=== PATIENT | female | born 2005 | race Caucasian/White ===

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

== ENCOUNTER → 2024-02-28 12:59 | Outpatient (CLI) | payer OTHER, MEDICAID, SELFPAY ==
[2024-02-28 20:26] LABS: Add Manual Diff / Slide Review NO; Basophils Absolute Auto 0 /uL (0-100); Basophils Percent Auto 1.1 % (0-2); Eosinophils Absolute Auto 100 /uL (0-450); Eosinophils Percent Auto 2.7 % (2-4); Hematocrit 33.5 % (36-46); Hemoglobin 11.7 g/dL (12.0-16.0); Lymphocytes Absolute Auto 1400 /uL (1100-4500); Mean Corpuscular HGB Conc 34.9 % (30-36); Mean Corpuscular Hemoglobin 33.7 PG (26-34); Mean Corpuscular Volume 96.7 fL (80-100); Monocytes Absolute Auto 100 /uL (0-900); Monocytes Percent Auto 6.4 % (3-14); Neutrophils Absolute Auto 600 /uL (1500-7000); Neutrophils Percent Auto 26.8 % (50-75); Platelet Count 250 X10^3/uL (150-400); Red Blood Cell Count 3.47 X10^6/uL (4.0-5.2); Red Cell Distribution Width 13.2 % (11.6-14.8); White Blood Cell Count 2.2 X10^3/uL (4.5-11.0)
[2024-02-28 20:49] LABS: Vitamin D 25 Hydroxy (D3) 38.6 ng/mL (30.0-100.0)
[2024-02-28 20:55] LABS: HEMOLYSIS < 15 (0-50); Iron 88 ug/dL (37-170)
[2024-02-28 20:57] LABS: Alanine Aminotransferase 24 IU/L (<35); Albumin Globulin Ratio 1.7 (1.0-2.8); Alkaline Phosphatase 50 U/L (38-126); Aspartate Aminotransferase 22 IU/L (14-36); BUN Creatinine Ratio 6.5 (6-22); Bilirubin Total 0.3 mg/dL (0.2-1.3); Blood Urea Nitrogen 5 mg/dL (7-17); Calcium 10.1 mg/dL (8.4-10.2); Carbon Dioxide 29 mmol/L (22-32); Chloride 101 mmol/L (98-107); Cholesterol 195 mg/dL (140-199); Estimated Glomerular Filt Rate > 60 mL/min (>60); Globulin 2.9 g/dL (1.7-4.1); Glucose 117 mg/dL (70-100); HEMOLYSIS < 15 (0-50); Phosphorous 4.4 mg/dL (4.5-5.5); Potassium 4.2 mmol/L (3.4-5.1); Sodium 140 mmol/L (137-145); Total Protein 7.9 g/dL (6.3-8.2)
[2024-02-28 21:08] LABS: Percent Iron Saturation 29 % (15-50); Total Iron Binding Capacity 307 ug/dL (265-497); Transferrin 231 mg/dL (206-381)
[2024-02-28 21:09] LABS: Prealbumin 28.5 mg/dL (17.6-36.0)
[2024-02-28 21:29] LABS: TSH w/ Reflex to FT4 1.13 uIU/mL (0.47-4.68)
[2024-02-28 21:33] LABS: Ferritin 36 ng/mL (6-137)
[2024-03-01 01:08] LABS: Homocysteine 10.8 umol/L (0.0-14.5)
[2024-03-04 18:39] LABS: Methylmalonic Acid,Serum 141 nmol/L (0-378)
== END ==
PROVIDERS: Nurse Practitioner; PCP Family Medicine; Visit Provider Family Medicine
DX: R62.7 Adult failure to thrive (principal); E46 Unspecified protein-calorie malnutrition; R63.4 Abnormal weight loss; R41.9 Unspecified symptoms and signs involving cognitive functions and awareness; D61.818 Other pancytopenia; F50.00 Anorexia nervosa, unspecified
CPT/HCPCS: 80053; 80069; 82306; 82465; 82728; 83090; 83540; 83550; 83921; 84134; 84443; 85025

== ENCOUNTER → 2024-03-14 11:00 | Outpatient (CLI) | payer OTHER, MEDICAID, SELFPAY ==
[2024-03-14 18:54] LABS: Albumin 4.2 g/dL (3.5-5.0); BUN Creatinine Ratio 12.5 (6-22); Blood Urea Nitrogen 8 mg/dL (7-17); Calcium 9.3 mg/dL (8.4-10.2); Carbon Dioxide 30 mmol/L (22-32); Chloride 103 mmol/L (98-107); Estimated Glomerular Filt Rate > 60 mL/min (>60); Glucose 57 mg/dL (70-100); HEMOLYSIS < 15 (0-50); Phosphorous 3.4 mg/dL (4.5-5.5); Sodium 139 mmol/L (137-145)
== END ==
PROVIDERS: PCP Family Medicine; Visit Provider Family Medicine
DX: R63.4 Abnormal weight loss (principal); R76.8 Other specified abnormal immunological findings in serum; R94.6 Abnormal results of thyroid function studies; E83.39 Other disorders of phosphorus metabolism; M25.50 Pain in unspecified joint; R62.7 Adult failure to thrive
CPT/HCPCS: 80069; 86038; 86225

== ENCOUNTER → 2024-03-28 11:02 | Outpatient (CLI) | payer OTHER, MEDICAID, SELFPAY ==
[2024-03-28 20:11] LABS: Add Manual Diff / Slide Review NO; Basophils Absolute Auto 0 /uL (0-100); Basophils Percent Auto 0.4 % (0-2); Eosinophils Absolute Auto 100 /uL (0-450); Eosinophils Percent Auto 3.3 % (2-4); Hematocrit 32.5 % (36-46); Hemoglobin 11.1 g/dL (12.0-16.0); Lymphocytes Absolute Auto 1100 /uL (1100-4500); Lymphocytes Percent Auto 50.4 % (25-40); Mean Corpuscular Volume 96.9 fL (80-100); Monocytes Absolute Auto 200 /uL (0-900); Monocytes Percent Auto 8.4 % (3-14); Neutrophils Absolute Auto 800 /uL (1500-7000); Neutrophils Percent Auto 37.5 % (50-75); Platelet Count 236 X10^3/uL (150-400); Red Blood Cell Count 3.36 X10^6/uL (4.0-5.2); Red Cell Distribution Width 12.6 % (11.6-14.8); White Blood Cell Count 2.1 X10^3/uL (4.5-11.0)
[2024-03-28 20:24] LABS: Alanine Aminotransferase 15 IU/L (<35); Albumin 4.3 g/dL (3.5-5.0); Albumin Globulin Ratio 1.5 (1.0-2.8); Alkaline Phosphatase 39 U/L (38-126); Aspartate Aminotransferase 20 IU/L (14-36); BUN Creatinine Ratio 13.3 (6-22); Bilirubin Total 0.2 mg/dL (0.2-1.3); Blood Urea Nitrogen 10 mg/dL (7-17); Calcium 9.2 mg/dL (8.4-10.2); Carbon Dioxide 29 mmol/L (22-32); Chloride 104 mmol/L (98-107); Estimated Glomerular Filt Rate > 60 mL/min (>60); Globulin 2.9 g/dL (1.7-4.1); Glucose 69 mg/dL (70-100); HEMOLYSIS < 15 (0-50); Phosphorous 3.2 mg/dL (4.5-5.5); Potassium 3.7 mmol/L (3.4-5.1); Sodium 139 mmol/L (137-145); Total Protein 7.2 g/dL (6.3-8.2)
[2024-03-28 20:59] LABS: Ferritin 30 ng/mL (6-137)
== END ==
PROVIDERS: PCP Family Medicine; Visit Provider Family Medicine
DX: R63.4 Abnormal weight loss (principal); R76.8 Other specified abnormal immunological findings in serum; R94.6 Abnormal results of thyroid function studies; D64.9 Anemia, unspecified; E83.39 Other disorders of phosphorus metabolism
CPT/HCPCS: 80053; 82728; 84100; 85025; 86038; 86160

== ENCOUNTER → 2024-04-11 11:05 | Outpatient (CLI) | payer OTHER, MEDICAID, SELFPAY ==
[2024-04-11 19:52] LABS: Albumin 4.7 g/dL (3.5-5.0); BUN Creatinine Ratio 16.5 (6-22); Blood Urea Nitrogen 13 mg/dL (7-17); Calcium 9.5 mg/dL (8.4-10.2); Carbon Dioxide 31 mmol/L (22-32); Chloride 102 mmol/L (98-107); Estimated Glomerular Filt Rate > 60 mL/min (>60); Glucose 81 mg/dL (70-100); HEMOLYSIS < 15 (0-50); Phosphorous 2.9 mg/dL (4.5-5.5); Sodium 140 mmol/L (137-145)
== END ==
PROVIDERS: PCP Family Medicine; Visit Provider Family Medicine
DX: R63.4 Abnormal weight loss (principal); E46 Unspecified protein-calorie malnutrition; R62.7 Adult failure to thrive
CPT/HCPCS: 80069

== ENCOUNTER → 2024-04-15 14:06 | Outpatient (CLI) | payer OTHER, MEDICAID, SELFPAY ==
[2024-04-15 19:10] LABS: Add Manual Diff / Slide Review NO; Basophils Absolute Auto 0 /uL (0-100); Basophils Percent Auto 0.8 % (0-2); Eosinophils Absolute Auto 0 /uL (0-450); Eosinophils Percent Auto 1.7 % (2-4); Hematocrit 29.9 % (36-46); Hemoglobin 10.6 g/dL (12.0-16.0); Lymphocytes Absolute Auto 1200 /uL (1100-4500); Lymphocytes Percent Auto 47.2 % (25-40); Mean Corpuscular HGB Conc 35.4 % (30-36); Mean Corpuscular Hemoglobin 33.4 PG (26-34); Mean Corpuscular Volume 94.4 fL (80-100); Monocytes Absolute Auto 300 /uL (0-900); Monocytes Percent Auto 11.6 % (3-14); Neutrophils Absolute Auto 1000 /uL (1500-7000); Neutrophils Percent Auto 38.7 % (50-75); Platelet Count 223 X10^3/uL (150-400); Red Blood Cell Count 3.17 X10^6/uL (4.0-5.2); Red Cell Distribution Width 12.7 % (11.6-14.8); White Blood Cell Count 2.5 X10^3/uL (4.5-11.0)
[2024-04-15 19:21] LABS: Alanine Aminotransferase 17 IU/L (<35); Albumin 4.3 g/dL (3.5-5.0); Albumin Globulin Ratio 1.7 (1.0-2.8); Alkaline Phosphatase 35 U/L (38-126); Aspartate Aminotransferase 20 IU/L (14-36); BUN Creatinine Ratio 23.7 (6-22); Bilirubin Total 0.3 mg/dL (0.2-1.3); Blood Urea Nitrogen 14 mg/dL (7-17); Calcium 9.1 mg/dL (8.4-10.2); Carbon Dioxide 29 mmol/L (22-32); Chloride 105 mmol/L (98-107); Estimated Glomerular Filt Rate > 60 mL/min (>60); Globulin 2.5 g/dL (1.7-4.1); Glucose 81 mg/dL (70-100); HEMOLYSIS < 15 (0-50); Potassium 3.6 mmol/L (3.4-5.1); Sodium 140 mmol/L (137-145); Total Protein 6.8 g/dL (6.3-8.2)
[2024-04-15 19:25] LABS: Amylase 108 U/L (30-110); C-Reactive Protein Quant < 0.5 mg/dL (<1.0); Lipase 291 U/L (23-300)
[2024-04-15 20:30] LABS: Folate 9.6 ng/mL (2.76-20.0); Vitamin B12 452 pg/mL (239-931)
[2024-04-18 07:33] LABS: Phosphorous 3.1 mg/dL (4.5-5.5)
[2024-04-18 19:08] LABS: Deamidated Gliadin Ab IgA 5 units (0-19); Deamidated Gliadin Ab IgG 3 units (0-19); Immunoglobulin A,Qn 219 mg/dL (87-352); t-Transglutaminase IgA <2 U/mL (0-3)
[2024-04-19 13:36] LABS: Zinc 34 ug/dL (44-115)
[2024-04-25 18:11] LABS: DQ8 (DQA1 03XX, DQB1 0302) Negative (.)
== END ==
PROVIDERS: PCP Family Medicine; Visit Provider Internal Medicine
DX: D61.818 Other pancytopenia (principal); D64.89 Other specified anemias; D70.8 Other neutropenia; R62.7 Adult failure to thrive; R63.4 Abnormal weight loss; E43 Unspecified severe protein-calorie malnutrition; R19.7 Diarrhea, unspecified; R10.84 Generalized abdominal pain; E83.39 Other disorders of phosphorus metabolism
CPT/HCPCS: 80053; 80069; 81377; 82150; 82607; 82746; 82784; 83516; 83690; 84630; 85025; 86140

== ENCOUNTER → 2024-04-30 13:25 | Outpatient (CLI) | payer OTHER, MEDICAID, SELFPAY ==
[2024-04-30 19:39] LABS: Albumin 4.4 g/dL (3.5-5.0); BUN Creatinine Ratio 20.3 (6-22); Blood Urea Nitrogen 13 mg/dL (7-17); Calcium 9.1 mg/dL (8.4-10.2); Carbon Dioxide 30 mmol/L (22-32); Chloride 102 mmol/L (98-107); Estimated Glomerular Filt Rate > 60 mL/min (>60); Glucose 71 mg/dL (70-100); HEMOLYSIS < 15 (0-50); Phosphorous 4.4 mg/dL (4.5-5.5); Sodium 139 mmol/L (137-145)
== END ==
PROVIDERS: PCP Family Medicine; Referring Provider Family Medicine; Visit Provider Family Medicine
DX: R63.4 Abnormal weight loss (principal); E43 Unspecified severe protein-calorie malnutrition; R19.7 Diarrhea, unspecified; E83.39 Other disorders of phosphorus metabolism; R10.84 Generalized abdominal pain
CPT/HCPCS: 80069

== ENCOUNTER → 2024-05-23 11:08 | Outpatient (CLI) | payer OTHER, SELFPAY ==
[2024-05-23 11:57] LABS: Albumin 5.1 g/dL (3.5-5.0); BUN Creatinine Ratio 8.6 (6-22); Blood Urea Nitrogen 7 mg/dL (7-17); Calcium 9.7 mg/dL (8.4-10.2); Carbon Dioxide 28 mmol/L (22-32); Chloride 103 mmol/L (98-107); Estimated Glomerular Filt Rate > 60 mL/min (>60); Glucose 60 mg/dL (70-100); HEMOLYSIS < 15 (0-50); Phosphorous 3.6 mg/dL (4.5-5.5); Potassium 3.8 mmol/L (3.4-5.1); Sodium 140 mmol/L (137-145)
== END ==
PROVIDERS: PCP Family Medicine; Referring Provider Family Medicine; Visit Provider Family Medicine
DX: R63.4 Abnormal weight loss (principal); E46 Unspecified protein-calorie malnutrition; R62.7 Adult failure to thrive
CPT/HCPCS: 36415; 80069

== ENCOUNTER → 2024-06-12 12:06 | Outpatient (CLI) | payer OTHER, SELFPAY ==
[2024-06-12 19:48] LABS: Hematocrit 36.1 % (36-46); Hemoglobin 12.4 g/dL (12.0-16.0); Mean Corpuscular HGB Conc 34.3 % (30-36); Mean Corpuscular Hemoglobin 31.5 PG (26-34); Mean Corpuscular Volume 91.8 fL (80-100); Platelet Count 264 X10^3/uL (150-400); Red Blood Cell Count 3.94 X10^6/uL (4.0-5.2); Red Cell Distribution Width 13.3 % (11.6-14.8); White Blood Cell Count 2.5 X10^3/uL (4.5-11.0)
[2024-06-12 19:49] LABS: Add Manual Diff / Slide Review YES
[2024-06-12 19:55] LABS: HEMOLYSIS < 15 (0-50)
[2024-06-12 19:58] LABS: Alanine Aminotransferase 17 IU/L (<35); Alkaline Phosphatase 44 U/L (38-126); Blood Urea Nitrogen 5 mg/dL (7-17); Calcium 9.7 mg/dL (8.4-10.2); Glucose 77 mg/dL (70-100); Total Protein 7.6 g/dL (6.3-8.2)
[2024-06-12 20:01] LABS: Albumin 4.7 g/dL (3.5-5.0); Albumin Globulin Ratio 1.6 (1.0-2.8); Aspartate Aminotransferase 24 IU/L (14-36); BUN Creatinine Ratio 6.1 (6-22); Bilirubin Total 0.3 mg/dL (0.2-1.3); Carbon Dioxide 26 mmol/L (22-32); Chloride 102 mmol/L (98-107); Estimated Glomerular Filt Rate > 60 mL/min (>60); Globulin 2.9 g/dL (1.7-4.1); Sodium 136 mmol/L (137-145)
[2024-06-12 20:05] LABS: Neutrophils Absolute Manual 275 /uL (3000-5900); RBC Morphology Normal Morphology; Total Cells Counted 100
[2024-06-12 21:03] LABS: Folate > 20.0 ng/mL (2.76-20.0); Vitamin B12 881 pg/mL (239-931)
[2024-06-15 02:36] LABS: Zinc 66 ug/dL (44-115)
== END ==
PROVIDERS: PCP Family Medicine; Visit Provider Internal Medicine
DX: D61.818 Other pancytopenia (principal); D64.89 Other specified anemias; D70.8 Other neutropenia; R62.7 Adult failure to thrive
CPT/HCPCS: 80053; 82607; 82746; 84630; 85007; 85025

== ENCOUNTER → 2024-06-28 14:33 | Outpatient (CLI) | payer OTHER, SELFPAY ==
[2024-06-28 17:54] LABS: Alanine Aminotransferase 15 IU/L (<35); Albumin 4.9 g/dL (3.5-5.0); Albumin Globulin Ratio 1.7 (1.0-2.8); Alkaline Phosphatase 38 U/L (38-126); Aspartate Aminotransferase 27 IU/L (14-36); BUN Creatinine Ratio 9.1 (6-22); Bilirubin Total 0.2 mg/dL (0.2-1.3); Blood Urea Nitrogen 7 mg/dL (7-17); Calcium 9.4 mg/dL (8.4-10.2); Carbon Dioxide 30 mmol/L (22-32); Chloride 97 mmol/L (98-107); Estimated Glomerular Filt Rate > 60 mL/min (>60); Globulin 2.9 g/dL (1.7-4.1); Glucose 82 mg/dL (70-100); HEMOLYSIS < 15 (0-50); Lactate Dehydrogenase 155 U/L (120-246); Phosphorous 3.5 mg/dL (4.5-5.5); Potassium 3.4 mmol/L (3.4-5.1); Sodium 136 mmol/L (137-145); Total Protein 7.8 g/dL (6.3-8.2); Uric Acid 3.3 mg/dL (2.5-6.2)
[2024-06-28 18:01] LABS: Add Manual Diff / Slide Review NO; Basophils Absolute Auto 0 /uL (0-100); Basophils Percent Auto 1.4 % (0-2); Eosinophils Absolute Auto 0 /uL (0-450); Eosinophils Percent Auto 1.7 % (2-4); Hematocrit 34.7 % (36-46); Lymphocytes Absolute Auto 1700 /uL (1100-4500); Lymphocytes Percent Auto 71.5 % (25-40); Mean Corpuscular HGB Conc 34.7 % (30-36); Mean Corpuscular Hemoglobin 31.7 PG (26-34); Mean Corpuscular Volume 91.6 fL (80-100); Monocytes Absolute Auto 200 /uL (0-900); Monocytes Percent Auto 8.4 % (3-14); Neutrophils Absolute Auto 400 /uL (1500-7000); Platelet Count 242 X10^3/uL (150-400); Red Blood Cell Count 3.78 X10^6/uL (4.0-5.2); Red Cell Distribution Width 13.3 % (11.6-14.8); White Blood Cell Count 2.4 X10^3/uL (4.5-11.0)
[2024-06-28 18:18] LABS: HEMOLYSIS < 15 (0-50); Iron 111 ug/dL (37-170)
[2024-06-28 18:29] LABS: Percent Iron Saturation 54 % (15-50); Total Iron Binding Capacity 205 ug/dL (265-497); Transferrin 178 mg/dL (206-381)
== END ==
PROVIDERS: Pediatrics; PCP Family Medicine; Visit Provider Registered Nurse General Practice
DX: R63.4 Abnormal weight loss (principal); E46 Unspecified protein-calorie malnutrition; F32.9 Major depressive disorder, single episode, unspecified; R62.7 Adult failure to thrive
CPT/HCPCS: 80053; 80069; 83540; 83550; 83615; 84550; 85025

== ENCOUNTER → 2024-07-01 14:37 | Outpatient (CLI) | payer OTHER, SELFPAY ==
[2024-07-01 20:08] LABS: Add Manual Diff / Slide Review NO; Basophils Absolute Auto 0 /uL (0-100); Basophils Percent Auto 0.6 % (0-2); Eosinophils Absolute Auto 0 /uL (0-450); Eosinophils Percent Auto 1.4 % (2-4); Hematocrit 35.1 % (36-46); Lymphocytes Absolute Auto 1800 /uL (1100-4500); Lymphocytes Percent Auto 77.2 % (25-40); Mean Corpuscular HGB Conc 34.2 % (30-36); Mean Corpuscular Hemoglobin 31.2 PG (26-34); Mean Corpuscular Volume 91.1 fL (80-100); Monocytes Absolute Auto 100 /uL (0-900); Monocytes Percent Auto 5.3 % (3-14); Neutrophils Absolute Auto 400 /uL (1500-7000); Neutrophils Percent Auto 15.5 % (50-75); Platelet Count 252 X10^3/uL (150-400); Red Blood Cell Count 3.85 X10^6/uL (4.0-5.2); Red Cell Distribution Width 13.3 % (11.6-14.8); White Blood Cell Count 2.3 X10^3/uL (4.5-11.0)
[2024-07-01 20:50] LABS: Folate > 20.0 ng/mL (2.76-20.0); Vitamin B12 900 pg/mL (239-931)
[2024-07-07 03:37] LABS: Zinc 67 ug/dL (44-115)
== END ==
PROVIDERS: Internal Medicine; PCP Family Medicine; Visit Provider Pediatrics
DX: E43 Unspecified severe protein-calorie malnutrition (principal); D70.9 Neutropenia, unspecified; D61.818 Other pancytopenia; D64.9 Anemia, unspecified; D70.8 Other neutropenia; R62.7 Adult failure to thrive
CPT/HCPCS: 81340; 81342; 82607; 82746; 84630; 85025

== ENCOUNTER → 2024-08-06 11:33 | Outpatient (CLI) | payer OTHER, SELFPAY ==
[2024-08-06 19:31] LABS: HEMOLYSIS < 15 (0-50)
[2024-08-06 19:41] LABS: Alanine Aminotransferase 35 IU/L (<35); Albumin 4.8 g/dL (3.5-5.0); Albumin Globulin Ratio 1.8 (1.0-2.8); Alkaline Phosphatase 35 U/L (38-126); Aspartate Aminotransferase 29 IU/L (14-36); BUN Creatinine Ratio 13.6 (6-22); Blood Urea Nitrogen 9 mg/dL (7-17); Calcium 9.2 mg/dL (8.4-10.2); Carbon Dioxide 30 mmol/L (22-32); Chloride 101 mmol/L (98-107); Estimated Glomerular Filt Rate > 60 mL/min (>60); Globulin 2.7 g/dL (1.7-4.1); Glucose 52 mg/dL (70-100); Phosphorous 3.2 mg/dL (4.5-5.5); Potassium 3.8 mmol/L (3.4-5.1); Sodium 139 mmol/L (137-145); Total Protein 7.5 g/dL (6.3-8.2)
[2024-08-06 19:43] LABS: Bilirubin Total < 0.1 mg/dL (0.2-1.3)
[2024-08-06 19:55] LABS: Hemoglobin 11.5 g/dL (12.0-16.0); Mean Corpuscular HGB Conc 34.8 % (30-36); Mean Corpuscular Hemoglobin 32.4 PG (26-34); Platelet Count 246 X10^3/uL (150-400); Red Blood Cell Count 3.55 X10^6/uL (4.0-5.2); Red Cell Distribution Width 13.9 % (11.6-14.8); White Blood Cell Count 2.2 X10^3/uL (4.5-11.0)
[2024-08-06 19:58] LABS: Add Manual Diff / Slide Review YES
[2024-08-06 20:41] LABS: Neutrophils Absolute Manual 462 /uL (3000-5900); Total Cells Counted 100
[2024-08-06 20:42] LABS: Burr Cells 1+
[2024-08-07 14:20] LABS: Folate 18.6 ng/mL (2.76-20.0); Vitamin B12 > 1000 pg/mL (239-931)
== END ==
PROVIDERS: PCP Family Medicine; Visit Provider Pediatrics
DX: D64.9 Anemia, unspecified (principal); R53.83 Other fatigue; E83.39 Other disorders of phosphorus metabolism; R63.4 Abnormal weight loss; D70.9 Neutropenia, unspecified; E43 Unspecified severe protein-calorie malnutrition
CPT/HCPCS: 80053; 82607; 82746; 84100; 84630; 85007; 85025